=== PATIENT | female | born 1960 | race Caucasian/White ===

== ENCOUNTER → 2017-06-23 | Outpatient (CLI) | payer BC ==
--- NOTE | 2017-06-24 14:48 | RAD ---
DATE: 06/23/2017 EXAM: DIGITAL SCREEN BILAT W/CAD HISTORY: Asymptomatic screening mammogram. COMPARISON: Prior mammograms from 06/22/2011, 08/29/2008 This study was interpreted with the benefit of Computerized Aided Detection (CAD). The breast parenchyma shows scattered fibroglandular densities. Breast parenchyma level B. FINDINGS: Bilateral CC and MLO views of the breasts were performed. Right breast: There are no suspicious microcalcifications, masses or areas of architectural distortion. Left breast: There are no suspicious microcalcifications, masses or areas of architectural distortion. Findings are stable from prior mammogram. IMPRESSION: Negative bilateral mammogram. Recommend annual screening mammography. BI-RADS CATEGORY: 1 NEGATIVE RECOMMENDED FOLLOW-UP: 12M 12 MONTH FOLLOW-UP PQRS compliance statement: Patient information was entered into a reminder system with a target due date 06/23/2018 for the next mammogram. Mammography is a sensitive method for finding small breast cancers, but it does not detect them all and is not a substitute for careful clinical examination. A negative mammogram does not negate a clinically suspicious finding and should not result in delay in biopsying a clinically suspicious abnormality. "Our facility is accredited by the [employer] Mammography [employer]."
== END | disposition home or self-care (01) ==
LOC: MAMMO 12:50
PROVIDERS: ATTEND Family Medicine
DX: Z12.31 Encounter for screening mammogram for malignant neoplasm of breast (principal)
CPT/HCPCS: G0202; 77067

== ENCOUNTER 2017-09-24 15:20 | Emergency (ER) | payer BC ==
[2017-09-24] MEDS: LIDOCAINE WITH 8.4% SOD BICARB 3 ML DISP.SYRIN. INJ (15:45)
== END 2017-09-24 16:13 | disposition home or self-care (01) ==
LOC: ER 15:20
DX: S61.412A Laceration without foreign body of left hand, initial encounter (principal); W26.0XXA Contact with knife, initial encounter; Y93.89 Activity, other specified; Y92.89 Other specified places as the place of occurrence of the external cause; Y99.8 Other external cause status
CPT/HCPCS: 12001; 99283-25

== ENCOUNTER → 2019-12-07 | Outpatient (CLI) | payer BC ==
[2017-09-24 15:56] VITALS: BP 149/87
--- NOTE | 2019-12-07 10:21 | KCIC ---
Chest PA and lateral: Reason for examination: Cough with shortness of breath since October. Possible pneumonia. The heart size is normal. Mediastinum is unremarkable. Lung gallego show some mild haziness in the right lung base which could reflect some mild infiltrates. No acute bony abnormalities are seen. Impression: Mild haziness in the right lung base. Cannot exclude some right lower lobe infiltrates. Electronically signed by: Olya Zapata MD (12/07/2019 10:18 AM) [id number]
== END | disposition home or self-care (01) ==
LOC: KCIC 08:51
PROVIDERS: ATTEND Nurse Practitioner Family
DX: R91.8 Other nonspecific abnormal finding of lung field (principal); J18.9 Pneumonia, unspecified organism
CPT/HCPCS: 71046

== ENCOUNTER → 2020-06-20 | Outpatient (CLI) | payer BC ==
[2017-09-24 15:56] VITALS: BP 149/87
--- NOTE | 2020-06-21 13:26 | RAD ---
DATE: 06/20/2020 EXAM: MAMMO PATTIE SCREENING BILATERAL HISTORY: Screening mammogram COMPARISON: 06/23/2017, 08/22/2011 This study was interpreted with the benefit of Computerized Aided Detection (CAD). Breast Density: SCATTERED The breast parenchyma shows scattered fibroglandular densities. Breast parenchyma level B. FINDINGS: There are 2 ovoid masses at approximately 6:00 5 to 6 cm posterior to the nipple in the right breast measuring 4 and 6 mm each. These are best seen on tomosynthesis. No suspicious calcifications or architectural distortion in either breast. IMPRESSION: Two small masses at 6:00 in the right breast. These could be small lymph nodes or cysts. Recommend ultrasound to confirm. BI-RADS CATEGORY: 0 INCOMPLETE: NEEDS ADDITIONAL IMAGING EVALUATION AND/OR PRIOR MAMMOGRAMS FOR COMPARISON. RECOMMENDED FOLLOW-UP: Right breast ultrasound. PQRS compliance statement: Mammography is a sensitive method for finding small breast cancers, but it does not detect them all and is not a substitute for careful clinical examination. A negative mammogram does not negate a clinically suspicious finding and should not result in delay in biopsying a clinically suspicious abnormality. "Our facility is accredited by the [employer]amm[employer]." MTDD
== END ==
LOC: MAMMO 14:50
PROVIDERS: ATTEND Family Medicine
DX: Z12.31 Encounter for screening mammogram for malignant neoplasm of breast (principal); N64.89 Other specified disorders of breast
CPT/HCPCS: 77063; 77067

== ENCOUNTER → 2020-06-23 | Outpatient (CLI) | payer BC ==
[2017-09-24 15:56] VITALS: BP 149/87
--- NOTE | 2020-06-23 19:04 | RAD ---
DATE: 06/23/2020 EXAM: BREAST RIGHT HISTORY: Recall from screening mammogram for right breast mass COMPARISON: Screening mammogram 06/20/2020 TECHNIQUE: Ultrasound right breast was performed from 5:00 to 7:00. FINDINGS: There is normal fibroglandular tissue. No cystic or solid mass. No lymphadenopathy. IMPRESSION: No evidence of malignancy. BI-RADS CATEGORY: 1 NEGATIVE RECOMMENDED FOLLOW-UP: 12M 12 MONTH FOLLOW-UP PQRS compliance statement: Patient information was entered into a reminder system with a target due date for the next mammogram.
== END ==
LOC: US 14:08
PROVIDERS: ATTEND Family Medicine
DX: R92.8 Other abnormal and inconclusive findings on diagnostic imaging of breast (principal); Z85.3 Personal history of malignant neoplasm of breast
CPT/HCPCS: 76641

== ENCOUNTER → 2021-06-27 | Outpatient (CLI) | payer BC ==
[2017-09-24 15:56] VITALS: BP 149/87
--- NOTE | 2021-06-28 11:00 | RAD ---
History: 60-year-old presents for routine screening mammogram. PROCEDURE: 3-D tomosynthesis was performed of the breasts bilaterally. 2-D C-view craniocaudal and mediolateral oblique digital mammograms were also generated. The images were also evaluated with [employer]-aided detection and the CAD results were analyzed. COMPARISON:[Bilateral mammogram from 06/20/2020 and subsequent left breast and ultrasound from 2019 ] FINDINGS: The breast tissue is heterogeneously dense, which could obscure detection of small masses (density le jeffrey C). Development of 2 tiny nodules adjacent to each other in the central slightly medial right fernandez ast, mid depth best seen on 3-D cc image #23/60 and sagittal image 33/77. Additionally there is a que stionable nodule in the superior medial right breast, mid depth, best seen on 3-D cranial caudal imag e 40/60 and MLO 3-D image 55/70 There are no suspicious microcalcifications or areas of architectura l distortion. IMPRESSION: New nodules in the right breast as outlined above. It is recommended evaluation with 90 d egree medial lateral, spot compression CC and MLO view and right breast ultrasound may be obtained. BI-RADS Category 0: Incomplete: Need additional imaging evaluation. A financial sales representative from the imaging department will contact the patient to schedule for followup. Mammography is the most sensitive method for finding small breast cancers, but it does not detect the m all and is not a substitute for careful clinical examination. A negative mammogram does not negate a clinically suspicious finding and should not result in delay in biopsying a clinically suspicious abnormality. "Our facility is accredited by the [employer] Mammography [employer]." Your mammogram demonstrates that you have dense breast tissue, which could hide abnormalities, and if you have other risk factors for breast cancer that have been identified, you might benefit from supp lemental screening tests that may be suggested by your ordering physician. Dense breast tissue, in a nd of itself, is a relatively common condition. This information is not provided to cause undue conc neo, but rather to raise your awareness and to promote discussion with your physician regarding the p resence of other risk factors, in addition to dense breast tissue. A report of your mammography resul ts will be sent to you and your physician. You should contact your physician if you have any questio ns or concerns regarding this report. A mammogram does not have 100% sensitivity and therefore a negative imaging study should not delay fu rther work up of a suspicious abnormality. "Our facility is accredited by the [employer] Mammography [employer]." Electronically signed by: Tawnya Valero MD (06/28/2021 10:58 AM) [id number]
== END ==
LOC: MAMMO 15:41
PROVIDERS: ATTEND Family Medicine
DX: Z12.31 Encounter for screening mammogram for malignant neoplasm of breast (principal); N63.10 Unspecified lump in the right breast, unspecified quadrant
CPT/HCPCS: 77063; 77067

== ENCOUNTER → 2021-07-19 | Outpatient (CLI) | payer BC ==
[2017-09-24 15:56] VITALS: BP 149/87
--- NOTE | 2021-07-19 10:14 | RAD ---
EXAM: Right breast diagnostic mammogram with tomosynthesis; right breast sonogram. HISTORY: 61-year-old female presents for evaluation of nodularity within the right breast demonstrate d on a screening mammogram dated 06/27/2021. TECHNIQUE: Full-field digital true lateral tomosynthesis images of the right breast and spot compress ion views of the right breast are obtained. Sonographic imaging of the right breast targeted to sites of mammographic nodularity was also performed. COMPARISON: 06/27/2021, 06/23/2020, 06/20/2020, 06/23/2017 BREAST PARENCHYMAL DENSITY: Level C - Heterogeneously dense. FINDINGS: The nodularity of concern within the superior slightly medial aspect of the right breast at mid depth on the prior study does not persist with additional mammographic views, favoring summation artifact. There are additional small nodular densities at anterior to mid depth which persist at the 6:00 position, one of which contains punctate calcification and is stable compared to mammograms darcy ed 06/23/2017. This favors benignity. There is no architectural distortion. Sonographic imaging of the right breast demonstrates a 4.5 mm oval hypoechoic lesion with internal ec hoes and no internal blood flow at the 6:00 position 3 cm from the nipple, the appearance of which fa vors a benign fibrocystic or complicated cystic etiology. There is an adjacent slightly complicated c yst measuring 4.7 mm. These likely account for the areas of aforementioned mammographic nodularity. T here are incidentally dilated ducts within the subareolar aspect of the breast. There are benign axil lei lymph nodes. IMPRESSION: 1. 4.5 mm benign fibrocystic or complicated cystic lesion and adjacent 4.7 mm benign complicated cyst ic lesion at the 6:00 position of the right breast. These correspond with the size and location of ma mmographic nodules of concern on the prior screening mammogram. The sonographic appearance and mammog raphic stability favors benignity. 2. No suspicious sonographic finding or persistent suspicious mammographic finding. 3. BI-RADS Category 2: Benign finding(s). RECOMMENDATION: Annual mammography is recommended. If your mammogram demonstrates that you have dense breast tissue, which could hide abnormalities, and if you have other risk factors for breast cancer that have been identified, you might benefit from s upplemental screening tests that may be suggested by your ordering physician. Dense breast tissue, i n and of itself, is a relatively common condition. This information is not provided to cause undue c oncern, but rather to raise your awareness and to promote discussion with your physician regarding th e presence of other risk factors, in addition to dense breast tissue. A report of your mammography re sults will be sent to you and your physician. You should contact your physician if you have any ques tions or concerns regarding this report. Mammography is a sensitive method for finding small breast cancers, but it does not detect them all a nd is not a substitute for careful clinical examination. A negative mammogram does not negate a clin ically suspicious finding and should not result in delay in biopsying a clinically suspicious abnorma lity. PQRS compliance statement - Patient information was entered into a reminder system with a target due date for the next mammogram. "Our facility is accredited by the [employer] Mammography [employer]." Electronically signed by: Arminda Nunez MD (07/19/2021 10:11 AM) [id number]
== END ==
LOC: MAMMO 09:20
PROVIDERS: ATTEND Family Medicine
DX: N60.01 Solitary cyst of right breast (principal); N64.89 Other specified disorders of breast
CPT/HCPCS: 76641; 77065; G0279; 77061